=== PATIENT | male | born 1995 | race Caucasian/White ===

== ENCOUNTER 2021-03-19 12:28 | Emergency (ER) | payer BC ==
[2021-03-20 16:08] LABS: SARS-CoV-2 NAA Not Detected (Not Detected)
== END 2021-03-19 12:50 | disposition home or self-care (01) ==
LOC: JVIRT 12:28
DX: R51.9 Headache, unspecified (principal); R09.81 Nasal congestion; Z20.822 Contact with and (suspected) exposure to COVID-19
CPT/HCPCS: C9803; Q3014-GT; U0003; U0005